=== PATIENT | male | born 2000 | race Caucasian/White ===

== ENCOUNTER 2023-02-14 20:07 | Emergency (ER) | payer OTHER ==
[2023-02-14] MEDS ORDERED: Diphtheria,Pertussis(Acell),Tetanus Vaccine 0.5 ML Syringe IM ONE (20:34)
[2023-02-14] MEDS ORDERED: Lidocaine 1% PF 2 ML SDV INJECT ONE (20:34)
[2023-02-14] MEDS ORDERED: Octyl 2-Cyanoacrylate 1 g/1 mL 1 APPLIC PEN TOP ONE (20:46)
== END 2023-02-14 21:03 | disposition home or self-care (01) ==
LOC: MW.ED 20:07
DX: S01.81XA Laceration without foreign body of other part of head, initial encounter (principal); Z23 Encounter for immunization; W20.8XXA Other cause of strike by thrown, projected or falling object, initial encounter; Y99.0 Civilian activity done for income or pay
CPT/HCPCS: 12011; 90471; 90715; 99283; A9270

== ENCOUNTER 2023-07-10 16:47 | Emergency (ER) | payer SELFPAY ==
[2023-07-10] MEDS ORDERED: Sodium Chloride 0.9% 10 ML Syringe FLUSH PRN (17:07)
[2023-07-10] MEDS ORDERED: Sodium Chloride 0.9% 2.5 ML Syringe FLUSH PRN (17:07)
[2023-07-10] MEDS ORDERED: Sodium Chloride 0.9% 1,000 ML IV STA (17:08)
[2023-07-10 18:26] LABS: HEMATOCRIT 43.4 % (42.0-52.0); HEMOGLOBIN 15.1 g/dL (14.0-18.0); MEAN CORPUSCULAR HEMOGLOBIN 30.4 pg (28.0-32.0); MEAN CORPUSCULAR HGB CONC 34.8 g/dL (32.0-36.0); MEAN CORPUSCULAR VOLUME 87.5 fL (83.0-99.0); MEAN PLATELET VOLUME 11.1 fL (9.4-12.4); PLATELET COUNT,PLT 182 K/uL (150-400); RED BLOOD CELL COUNT 4.96 M/uL (4.52-5.90); WHITE BLOOD CELL COUNT,WBC 4.77 K/uL (3.9-11.3)
[2023-07-10 18:46] LABS: SEG NEUTROPHILS ABSOLUTE MAN 2.9 (1.4-5.7); SEG NEUTROPHILS PERCENT MAN 61 % (48.0-80.0)
[2023-07-10 18:47] LABS: EOSINOPHILS PERCENT MAN 1 % (0.0-7.0); LYMPHOCYTES ABSOLUTE MAN 0.9 (0.6-2.4); LYMPHOCYTES PERCENT MAN 18 % (16.0-40.0); MONOCYTES PERCENT MAN 20 % (0.0-15.0)
[2023-07-10 19:02] LABS: A/G RATIO 1.1 (0.9-1.6); ALBUMIN 3.8 g/dL (3.4-5.0); BILIRUBIN TOTAL 0.4 mg/dL (0.2-1.0); CALCIUM 8.7 mg/dL (8.5-10.1); CREATININE 1.1 mg/dL (0.8-1.3); EST CRCL DRUG DOSING (CG) 88.6 mL/min; MAGNESIUM 1.8 mg/dL (1.8-2.4); POTASSIUM,K 4.3 mmol/L (3.5-5.1); PROTEIN TOTAL,TP 7.4 g/dL (6.4-8.2)
[2023-07-10 19:03] LABS: CORONAVIRUS COVID-19 NAA POSITIVE (NEGATIVE); INFLUENZA A NAA NEGATIVE (NEGATIVE); INFLUENZA B NAA NEGATIVE (NEGATIVE)
== END 2023-07-10 19:33 | disposition home or self-care (01) ==
LOC: MW.ED 16:47
DX: U07.1 COVID-19 (principal); I10 Essential (primary) hypertension; Z88.0 Allergy status to penicillin; Z79.899 Other long term (current) drug therapy
CPT/HCPCS: 0240U; 36415; 80053; 82947; 83735; 84484; 85025; 93005; 96360; 99284; J3490; J7030; 93010; 99283

== ENCOUNTER 2023-08-29 20:47 | Emergency (ER) | payer OTHER ==
[2023-08-29] MEDS ORDERED: LORazepam 1 MG Tab PO ONE (21:08)
[2023-08-29 21:35] LABS: BASOPHILS ABSOLUTE AUTO 0.03 K/uL (0.00-0.20); BASOPHILS PERCENT AUTO 0.4 % (0.0-1.0); EOSINOPHILS ABSOLUTE AUTO 0.17 K/uL (0.00-0.45); EOSINOPHILS PERCENT AUTO 2.4 % (0.0-6.0); HEMATOCRIT 42.7 % (42.0-52.0); HEMOGLOBIN 14.8 g/dL (14.0-18.0); IMMATURE GRAN ABSOLUTE AUTO 0.02 K/uL (0.00-0.05); IMMATURE GRAN PERCENT AUTO 0.3 % (0.0-0.4); LYMPHOCYTES ABSOLUTE AUTO 2.41 K/uL (1.00-4.80); MEAN CORPUSCULAR HGB CONC 34.7 g/dL (32.0-36.0); MEAN CORPUSCULAR VOLUME 86.6 fL (83.0-99.0); MEAN PLATELET VOLUME 11.1 fL (9.4-12.4); MONOCYTES ABSOLUTE AUTO 0.55 K/uL (0.00-0.80); MONOCYTES PERCENT AUTO 7.8 % (0.0-8.0); NEUTROPHILS ABSOLUTE AUTO 3.91 K/uL (1.80-7.70); NEUTROPHILS PERCENT AUTO 55.1 % (41.0-71.0); PLATELET COUNT,PLT 222 K/uL (150-400); RED BLOOD CELL COUNT 4.93 M/uL (4.52-5.90); WHITE BLOOD CELL COUNT,WBC 7.09 K/uL (3.9-11.3)
[2023-08-29 22:05] LABS: ALANINE AMINOTRANSFERASE,ALT 24 IU/L (14-63); ALBUMIN 3.7 g/dL (3.4-5.0); ALKALINE PHOSPHATASE 101 U/L (46-116); ASPARTATE AMNIOTRANSFERASE,AST 19 IU/L (15-37); BILIRUBIN TOTAL 0.4 mg/dL (0.2-1.0); BLOOD UREA NITROGEN,BUN 12 mg/dL (7.0-18.0); CALCIUM 8.9 mg/dL (8.5-10.1); CARBON DIOXIDE,CO2 27.2 mmol/L (21.0-32.0); CHLORIDE,CL 104 mmol/L (98-107); CREATININE 0.9 mg/dL (0.8-1.3); EST CRCL DRUG DOSING (CG) 104.68 mL/min; GLUCOSE RANDOM 98 mg/dL (74-106); POTASSIUM,K 3.7 mmol/L (3.5-5.1); PROTEIN TOTAL,TP 7.3 g/dL (6.4-8.2); SODIUM,NA 140 mmol/L (136-148); TSH ULTRASENSITIVE 2.09 uIU/mL (0.36-3.74)
[2023-08-29 22:13] LABS: ESTIMATED GFR 125 mL/min (>60)
[2023-08-29 22:35] LABS: APPEARANCE,URINE CLEAR; BILIRUBIN,URINE NEGATIVE (NEGATIVE); COLOR,URINE YELLOW; GLUCOSE,URINE NEGATIVE (NEGATIVE); KETONES,URINE NEGATIVE (NEGATIVE); LEUKOCYTE ESTERASE,URINE NEGATIVE (NEGATIVE); NITRITE,URINE NEGATIVE (NEGATIVE); OCCULT BLOOD,URINE TRACE-LYSED (NEGATIVE); PROTEIN,URINE NEGATIVE (NEGATIVE)
[2023-08-29 22:45] LABS: AMPHETAMINES SCREEN, URINE NEGATIVE (CUTOFF=500); BARBITURATE SCREEN,URINE NEGATIVE (CUTOFF=200); BENZODIAZEPINES SCREEN,URINE NEGATIVE (CUTOFF=150); BUPRENORPHINE SCREEN,URINE NEGATIVE (CUTOFF=10); METHADONE SCREEN, URINE NEGATIVE (CUTOFF=200); METHAMPHETAMINES SCREEN, URINE NEGATIVE (CUTOFF=500); OXYCODONE SCREEN,URINE NEGATIVE (CUT0FF=100); PCP SCREEN,URINE NEGATIVE (CUTOFF=25); THC SCREEN,URINE 20 NG/ML NEGATIVE (CUTOFF=50)
[2023-08-29 23:01] LABS: BACTERIA,URINE RARE (NEGATIVE); EPITHELIAL CELLS,URINE RARE (NONE-FEW); RBC,URINE 0-3 (0-2/HPF); WBC,URINE 0-1 (0-5/HPF)
== END 2023-08-30 00:32 | disposition home or self-care (01) ==
LOC: MW.ED 20:47
DX: R07.9 Chest pain, unspecified (principal)
CPT/HCPCS: 36415; 71045; 80053; 80305; 81001; 84443; 84484; 85025; 93005; 99285; A9270; 93010; 99283

== ENCOUNTER 2023-12-05 06:22 | Emergency (ER) | payer SELFPAY ==
[2023-12-05] MEDS: Ibuprofen 600 MG Tab PO ONE (06:58)
[2023-12-05] MEDS: Acetaminophen/oxyCODONE 325-5 MG Tab PO ONE (06:58)
== END 2023-12-05 07:39 | disposition home or self-care (01) ==
LOC: MW.ED 06:22
DX: S62.001A Unspecified fracture of navicular [scaphoid] bone of right wrist, initial encounter for closed fracture (principal); M87.9 Osteonecrosis, unspecified; I10 Essential (primary) hypertension; F17.210 Nicotine dependence, cigarettes, uncomplicated; Z79.899 Other long term (current) drug therapy; Z88.0 Allergy status to penicillin; W18.40XA Slipping, tripping and stumbling without falling, unspecified, initial encounter
CPT/HCPCS: 73110; 99283; A9270

== ENCOUNTER 2024-03-28 09:34 | Emergency (ER) | payer BC ==
[2024-03-28] MEDS: Sodium Chloride 0.9% 1,000 ML IV ONE (10:21)
[2024-03-28 10:29] LABS: BASOPHILS ABSOLUTE AUTO 0.04 K/uL (0.00-0.20); BASOPHILS PERCENT AUTO 0.6 % (0.0-1.0); EOSINOPHILS ABSOLUTE AUTO 0.17 K/uL (0.00-0.45); EOSINOPHILS PERCENT AUTO 2.7 % (0.0-6.0); HEMOGLOBIN 15.1 g/dL (14.0-18.0); IMMATURE GRAN ABSOLUTE AUTO 0.04 K/uL (0.00-0.05); IMMATURE GRAN PERCENT AUTO 0.6 % (0.0-0.4); LYMPHOCYTES ABSOLUTE AUTO 1.76 K/uL (1.00-4.80); LYMPHOCYTES PERCENT AUTO 28.1 % (24.0-44.0); MEAN CORPUSCULAR HEMOGLOBIN 30.5 pg (28.0-32.0); MEAN CORPUSCULAR HGB CONC 34.3 g/dL (32.0-36.0); MEAN CORPUSCULAR VOLUME 88.9 fL (83.0-99.0); MEAN PLATELET VOLUME 11.4 fL (9.4-12.4); MONOCYTES ABSOLUTE AUTO 0.56 K/uL (0.00-0.80); MONOCYTES PERCENT AUTO 8.9 % (0.0-8.0); NEUTROPHILS ABSOLUTE AUTO 3.69 K/uL (1.80-7.70); NEUTROPHILS PERCENT AUTO 59.1 % (41.0-71.0); PLATELET COUNT,PLT 269 K/uL (150-400); RED BLOOD CELL COUNT 4.95 M/uL (4.52-5.90); WHITE BLOOD CELL COUNT,WBC 6.26 K/uL (3.9-11.3)
[2024-03-28 10:38] LABS: A/G RATIO 1.2 (0.9-1.6); ALBUMIN 4.1 g/dL (3.4-5.0); BILIRUBIN TOTAL 0.5 mg/dL (0.2-1.0); CALCIUM 8.8 mg/dL (8.5-10.1); CARBON DIOXIDE,CO2 27.4 mmol/L (21.0-32.0); CREATININE 0.9 mg/dL (0.8-1.3); EST CRCL DRUG DOSING (CG) 108.29 mL/min; POTASSIUM,K 4.1 mmol/L (3.5-5.1); PROTEIN TOTAL,TP 7.5 g/dL (6.4-8.2)
[2024-03-28 11:08] LABS: CORONAVIRUS COVID-19 NAA NEGATIVE (NEGATIVE); INFLUENZA A NAA NEGATIVE (NEGATIVE); INFLUENZA B NAA NEGATIVE (NEGATIVE)
[2024-03-28 11:15] LABS: TSH ULTRASENSITIVE 0.65 uIU/mL (0.36-3.74)
== END 2024-03-28 12:26 | disposition home or self-care (01) ==
LOC: MW.ED 09:34
DX: R53.83 Other fatigue (principal); I10 Essential (primary) hypertension; F17.210 Nicotine dependence, cigarettes, uncomplicated; Z75.8 Other problems related to medical facilities and other health care; Z88.0 Allergy status to penicillin
CPT/HCPCS: 0240U; 36415; 71045; 80053; 82375; 83735; 84443; 85025; 86308; 93005; 96360; 96361; 99285; J7030

== ENCOUNTER 2024-04-25 21:55 | Emergency (ER) | payer SELFPAY ==
[2024-04-25] MEDS ORDERED: Sodium Chloride 0.9% 2.5 ML Syringe FLUSH PRN (22:03)
[2024-04-25] MEDS ORDERED: Sodium Chloride 0.9% 10 ML Syringe FLUSH PRN (22:03)
[2024-04-25 22:22] LABS: BASOPHILS ABSOLUTE AUTO 0.06 K/uL (0.00-0.20); BASOPHILS PERCENT AUTO 0.7 % (0.0-1.0); EOSINOPHILS ABSOLUTE AUTO 0.17 K/uL (0.00-0.45); EOSINOPHILS PERCENT AUTO 2.1 % (0.0-6.0); HEMATOCRIT 45.5 % (42.0-52.0); IMMATURE GRAN ABSOLUTE AUTO 0.02 K/uL (0.00-0.05); IMMATURE GRAN PERCENT AUTO 0.2 % (0.0-0.4); LYMPHOCYTES ABSOLUTE AUTO 2.79 K/uL (1.00-4.80); LYMPHOCYTES PERCENT AUTO 34.4 % (24.0-44.0); MEAN CORPUSCULAR HEMOGLOBIN 30.7 pg (28.0-32.0); MEAN CORPUSCULAR HGB CONC 35.2 g/dL (32.0-36.0); MEAN CORPUSCULAR VOLUME 87.2 fL (83.0-99.0); MEAN PLATELET VOLUME 11.2 fL (9.4-12.4); MONOCYTES ABSOLUTE AUTO 0.49 K/uL (0.00-0.80); NEUTROPHILS ABSOLUTE AUTO 4.59 K/uL (1.80-7.70); NEUTROPHILS PERCENT AUTO 56.6 % (41.0-71.0); PLATELET COUNT,PLT 235 K/uL (150-400); RED BLOOD CELL COUNT 5.22 M/uL (4.52-5.90); WHITE BLOOD CELL COUNT,WBC 8.12 K/uL (3.9-11.3)
[2024-04-25] MEDS: Sodium Chloride 0.9% 1,000 ML IV STA (22:36)
[2024-04-25] MEDS: Ondansetron 4 MG/2 ML SDV IVPUSH ONE (22:37)
[2024-04-25 22:49] LABS: A/G RATIO 1.3 (0.9-1.6); ALBUMIN 4.2 g/dL (3.4-5.0); CREATININE 0.9 mg/dL (0.8-1.3); EST CRCL DRUG DOSING (CG) 107.8 mL/min; POTASSIUM,K 3.4 mmol/L (3.5-5.1); PROTEIN TOTAL,TP 7.4 g/dL (6.4-8.2)
[2024-04-25 22:50] LABS: APPEARANCE,URINE CLEAR; BILIRUBIN,URINE NEGATIVE (NEGATIVE); COLOR,URINE YELLOW; GLUCOSE,URINE NEGATIVE (NEGATIVE); KETONES,URINE NEGATIVE (NEGATIVE); LEUKOCYTE ESTERASE,URINE NEGATIVE (NEGATIVE); NITRITE,URINE NEGATIVE (NEGATIVE); OCCULT BLOOD,URINE NEGATIVE (NEGATIVE); PROTEIN,URINE NEGATIVE (NEGATIVE)
[2024-04-25 22:52] LABS: LACTIC ACID 1.9 mmol/L (0.4-2.0)
== END 2024-04-25 23:31 | disposition home or self-care (01) ==
LOC: MW.ED 21:55
DX: R11.2 Nausea with vomiting, unspecified (principal); R19.7 Diarrhea, unspecified; Z75.8 Other problems related to medical facilities and other health care; I10 Essential (primary) hypertension
CPT/HCPCS: 36415; 80053; 81003; 83605; 83690; 85025; 96361; 96374; 99284; J2405; J7030

== ENCOUNTER 2024-07-07 10:52 | Emergency (ER) | payer SELFPAY ==
[2024-07-07] MEDS: Ondansetron 4 MG/2 ML SDV IVPUSH ONE (11:09)
[2024-07-07] MEDS: Sodium Chloride 0.9% 1,000 ML IV ONE (11:10)
[2024-07-07 11:13] LABS: BASOPHILS ABSOLUTE AUTO 0.08 K/uL (0.00-0.20); BASOPHILS PERCENT AUTO 0.7 % (0.0-1.0); EOSINOPHILS ABSOLUTE AUTO 0.07 K/uL (0.00-0.45); EOSINOPHILS PERCENT AUTO 0.6 % (0.0-6.0); HEMOGLOBIN 14.2 g/dL (14.0-18.0); IMMATURE GRAN PERCENT AUTO 0.8 % (0.0-0.4); LYMPHOCYTES ABSOLUTE AUTO 2.41 K/uL (1.00-4.80); MEAN CORPUSCULAR HEMOGLOBIN 30.1 pg (28.0-32.0); MEAN CORPUSCULAR HGB CONC 33.8 g/dL (32.0-36.0); MEAN CORPUSCULAR VOLUME 89.2 fL (83.0-99.0); MONOCYTES ABSOLUTE AUTO 0.65 K/uL (0.00-0.80); MONOCYTES PERCENT AUTO 5.4 % (0.0-8.0); NEUTROPHILS ABSOLUTE AUTO 8.74 K/uL (1.80-7.70); NEUTROPHILS PERCENT AUTO 72.5 % (41.0-71.0); PLATELET COUNT,PLT 247 K/uL (150-400); RED BLOOD CELL COUNT 4.71 M/uL (4.52-5.90); WHITE BLOOD CELL COUNT,WBC 12.05 K/uL (3.9-11.3)
[2024-07-07 11:38] LABS: A/G RATIO 1.2 (0.9-1.6); ALANINE AMINOTRANSFERASE,ALT 45 IU/L (14-63); ALKALINE PHOSPHATASE 98 U/L (46-116); ASPARTATE AMNIOTRANSFERASE,AST 36 IU/L (15-37); BILIRUBIN TOTAL 0.4 mg/dL (0.2-1.0); BLOOD UREA NITROGEN,BUN 10 mg/dL (7.0-18.0); CALCIUM 8.7 mg/dL (8.5-10.1); CARBON DIOXIDE,CO2 27.8 mmol/L (21.0-32.0); CHLORIDE,CL 103 mmol/L (98-107); CREATININE 0.8 mg/dL (0.8-1.3); EST CRCL DRUG DOSING (CG) 121.89 mL/min; ESTIMATED GFR 128 mL/min (>60); ETHANOL BLOOD MEDICAL 273 mg/dL; GLUCOSE RANDOM 158 mg/dL (74-106); POTASSIUM,K 3.3 mmol/L (3.5-5.1); PROTEIN TOTAL,TP 7.3 g/dL (6.4-8.2); SODIUM,NA 142 mmol/L (136-148)
== END 2024-07-07 14:22 | disposition home or self-care (01) ==
LOC: MW.ED 10:52
DX: Z02.89 Encounter for other administrative examinations (principal); S09.90XA Unspecified injury of head, initial encounter; F14.10 Cocaine abuse, uncomplicated; I10 Essential (primary) hypertension; Z88.0 Allergy status to penicillin; Z75.8 Other problems related to medical facilities and other health care; Y04.8XXA Assault by other bodily force, initial encounter
CPT/HCPCS: 36415; 70450; 71045; 72125; 80053; 80307; 84484; 85025; 93005; 96361; 96374; 99285; J2405; J7030; 93010; 99284

== ENCOUNTER 2024-10-03 00:28 | Emergency (ER) | payer SELFPAY ==
[2024-10-03] MEDS: predniSONE 20 MG Tab PO ONE (00:42)
[2024-10-03] MEDS: Albuterol/Ipratropium 3.0-0.5 MG/3 ML Neb Soln NEB ONE ×3 (00:43→00:44)
[2024-10-03] MEDS: Albuterol 8 GM Inhaler INH ONE (02:15)
[2024-10-03] MEDS ORDERED: Albuterol 8 GM Inhaler INH ONE (02:30)
== END 2024-10-03 02:34 | disposition home or self-care (01) ==
LOC: MW.ED 00:28
DX: J45.901 Unspecified asthma with (acute) exacerbation (principal); I10 Essential (primary) hypertension; Z88.0 Allergy status to penicillin; Z79.899 Other long term (current) drug therapy; Z79.51 Long term (current) use of inhaled steroids
CPT/HCPCS: 99284; A9270; 99283; J7620-GY

== ENCOUNTER 2024-10-20 04:45 | Emergency (ER) | payer SELFPAY ==
[2024-10-20] MEDS ORDERED: Sodium Chloride 0.9% 10 ML Syringe FLUSH PRN (05:12)
[2024-10-20] MEDS ORDERED: Sodium Chloride 0.9% 20 ML SDV IV PRN (05:12)
[2024-10-20] MEDS ORDERED: Sodium Chloride 0.9% 2.5 ML Syringe FLUSH PRN (05:12)
[2024-10-20] MEDS ORDERED: Naloxone 0.4 MG/ML SDV IVPUSH PRN (05:17)
[2024-10-20 05:19] LABS: BASOPHILS ABSOLUTE AUTO 0.06 K/uL (0.00-0.20); BASOPHILS PERCENT AUTO 0.8 % (0.0-1.0); EOSINOPHILS ABSOLUTE AUTO 0.48 K/uL (0.00-0.45); EOSINOPHILS PERCENT AUTO 6.3 % (0.0-6.0); HEMATOCRIT 43.1 % (42.0-52.0); HEMOGLOBIN 15.1 g/dL (14.0-18.0); IMMATURE GRAN ABSOLUTE AUTO 0.02 K/uL (0.00-0.05); IMMATURE GRAN PERCENT AUTO 0.3 % (0.0-0.4); LYMPHOCYTES ABSOLUTE AUTO 2.85 K/uL (1.00-4.80); LYMPHOCYTES PERCENT AUTO 37.2 % (24.0-44.0); MEAN CORPUSCULAR HEMOGLOBIN 30.6 pg (28.0-32.0); MEAN CORPUSCULAR VOLUME 87.4 fL (83.0-99.0); MEAN PLATELET VOLUME 11.5 fL (9.4-12.4); MONOCYTES ABSOLUTE AUTO 0.44 K/uL (0.00-0.80); MONOCYTES PERCENT AUTO 5.7 % (0.0-8.0); NEUTROPHILS ABSOLUTE AUTO 3.82 K/uL (1.80-7.70); NEUTROPHILS PERCENT AUTO 49.7 % (41.0-71.0); PLATELET COUNT,PLT 183 K/uL (150-400); RED BLOOD CELL COUNT 4.93 M/uL (4.52-5.90); WHITE BLOOD CELL COUNT,WBC 7.67 K/uL (3.9-11.3)
[2024-10-20] MEDS: Sodium Chloride 0.9% 1,000 ML IV ONE (05:27)
[2024-10-20] MEDS: Ondansetron 4 MG/2 ML SDV IVPUSH ONE (05:27)
[2024-10-20] MEDS: Morphine 2 MG/ML SYRINGE IVPUSH ONE (05:27)
[2024-10-20 05:29] LABS: A/G RATIO 1.2 (0.9-1.6); ALANINE AMINOTRANSFERASE,ALT 22 IU/L (14-63); ALKALINE PHOSPHATASE 97 U/L (46-116); ASPARTATE AMNIOTRANSFERASE,AST 22 IU/L (15-37); BILIRUBIN TOTAL 0.3 mg/dL (0.2-1.0); BLOOD UREA NITROGEN,BUN 13 mg/dL (7.0-18.0); CARBON DIOXIDE,CO2 26.2 mmol/L (21.0-32.0); CHLORIDE,CL 102 mmol/L (98-107); CREATININE 0.9 mg/dL (0.8-1.3); EST CRCL DRUG DOSING (CG) 112.35 mL/min; GLUCOSE RANDOM 105 mg/dL (74-106); POTASSIUM,K 3.9 mmol/L (3.5-5.1); PROTEIN TOTAL,TP 7.4 g/dL (6.4-8.2); SODIUM,NA 141 mmol/L (136-148)
[2024-10-20] MEDS: Ketorolac 30 MG/ML SDV IVPUSH ONE (05:32)
[2024-10-20] MEDS: Iopamidol 755 MG/ML 500 ML Multipack Bottle IVPUSH ONE (05:47)
[2024-10-20 05:59] LABS: C-REACTIVE PROTEIN < 0.05 mg/dL (<0.3); ESTIMATED GFR 124 mL/min (>60)
== END 2024-10-20 07:56 | disposition home or self-care (01) ==
LOC: MW.ED 04:45
DX: G44.86 Cervicogenic headache (principal); J45.909 Unspecified asthma, uncomplicated; I10 Essential (primary) hypertension; Z88.0 Allergy status to penicillin; Z79.51 Long term (current) use of inhaled steroids; Z75.8 Other problems related to medical facilities and other health care
CPT/HCPCS: 36415; 70450; 70496; 70498; 80053; 85025; 86140; 96361; 96374; 96375; 99284; J2270; J2405; J7030; Q9967

== ENCOUNTER 2025-07-17 11:10 | Emergency (ER) | payer SELFPAY | END 2025-07-17 13:04 | disposition home or self-care (01) | LOC: MW.ED 11:10 | DX: M25.531 Pain in right wrist (principal); I10 Essential (primary) hypertension; J45.909 Unspecified asthma, uncomplicated; Z75.3 Unavailability and inaccessibility of health-care facilities; Z88.1 Allergy status to other antibiotic agents; Z88.8 Allergy status to other drugs, medicaments and biological substances; X58.XXXA Exposure to other specified factors, initial encounter | CPT/HCPCS: 73110-26-RT; 73110-RT; 99283 ==

== ENCOUNTER 2025-07-19 17:49 | Emergency (ER) | payer SELFPAY ==
[2025-07-19] MEDS ORDERED: Sodium Chloride 0.9% 10 ML Syringe FLUSH PRN (17:57)
[2025-07-19] MEDS ORDERED: Sodium Chloride 0.9% 2.5 ML Syringe FLUSH PRN (17:57)
[2025-07-19 18:17] LABS: BASOPHILS ABSOLUTE AUTO 0.03 K/uL (0.00-0.20); BASOPHILS PERCENT AUTO 0.2 % (0.0-1.0); EOSINOPHILS ABSOLUTE AUTO 0.00 K/uL (0.00-0.45); EOSINOPHILS PERCENT AUTO 0.0 % (0.0-6.0); IMMATURE GRAN ABSOLUTE AUTO 0.06 K/uL (0.00-0.05); IMMATURE GRAN PERCENT AUTO 0.5 % (0.0-0.4); LYMPHOCYTES ABSOLUTE AUTO 3.19 K/uL (1.00-4.80); LYMPHOCYTES PERCENT AUTO 24.0 % (24.0-44.0); MEAN PLATELET VOLUME 10.6 fL (9.4-12.4); MONOCYTES ABSOLUTE AUTO 1.17 K/uL (0.00-0.80); MONOCYTES PERCENT AUTO 8.8 % (0.0-8.0); NEUTROPHILS ABSOLUTE AUTO 8.85 K/uL (1.80-7.70); NEUTROPHILS PERCENT AUTO 66.5 % (41.0-71.0); NRBC ABSOLUTE 0.00 K/uL (0.00-0.02); NRBC PERCENT 0.0 /100WBC (0.0-0.2); PLATELET COUNT,PLT 241 K/uL (150-400); RED BLOOD CELL COUNT 4.77 M/uL (4.52-5.90); WHITE BLOOD CELL COUNT,WBC 13.30 K/uL (3.9-11.3)
[2025-07-19] MEDS ORDERED: Midazolam 1 MG/ML 2 ML SDV IVPUSH PRN (18:20)
[2025-07-19] MEDS: Ketorolac 30 MG/ML SDV IVPUSH ONE (18:32)
[2025-07-19] MEDS: Iopamidol 755 Mg/ML 100 ML Bottle IVPUSH ONE (18:32)
[2025-07-19] MEDS: Dexamethasone Sod Phos Preservative Free 10 MG/ML Vial IVPUSH ONE (18:32)
[2025-07-19 18:38] LABS: APPEARANCE,URINE CLEAR; GLUCOSE,URINE NEGATIVE (NEGATIVE); OCCULT BLOOD,URINE NEGATIVE (NEGATIVE)
[2025-07-19 18:47] LABS: AMPHETAMINES SCREEN, URINE NEGATIVE (CUTOFF=500); BUPRENORPHINE SCREEN,URINE NEGATIVE (CUTOFF=10); METHADONE SCREEN, URINE NEGATIVE (CUTOFF=200); METHAMPHETAMINES SCREEN, URINE PRESUMPTIVE POSITIVE (CUTOFF=500); OXYCODONE SCREEN,URINE NEGATIVE (CUT0FF=100); PCP SCREEN,URINE NEGATIVE (CUTOFF=25); THC SCREEN,URINE 20 NG/ML PRESUMPTIVE POSITIVE (CUTOFF=50)
[2025-07-19 18:51] LABS: A/G RATIO 1.2 (0.9-1.6); ALANINE AMINOTRANSFERASE,ALT 23.0 IU/L (14-63); ASPARTATE AMNIOTRANSFERASE,AST 19.0 IU/L (15-37); BILIRUBIN TOTAL 0.5 mg/dL (0.2-1.0); BLOOD UREA NITROGEN,BUN 18.0 mg/dL (7.0-18.0); CARBON DIOXIDE,CO2 27.8 mmol/L (21.0-32.0); CHLORIDE,CL 103.0 mmol/L (98-107); CREATININE 0.9 mg/dL (0.8-1.3); EST CRCL DRUG DOSING (CG) 104.83 mL/min; ESTIMATED GFR 123.0 mL/min (>60); GLUCOSE RANDOM 78.0 mg/dL (74-106); POTASSIUM,K 3.5 mmol/L (3.5-5.1); PRO B-TYPE NATRIUR PEPT,BNPPRO 8.0 pg/mL (0-125); PROTEIN TOTAL,TP 7.1 g/dL (6.4-8.2); SODIUM,NA 140.0 mmol/L (136-148)
== END 2025-07-19 19:14 | disposition home or self-care (01) ==
LOC: MW.ED 17:49
DX: S20.221A Contusion of right back wall of thorax, initial encounter (principal); F15.129 Other stimulant abuse with intoxication, unspecified; F14.90 Cocaine use, unspecified, uncomplicated; F12.90 Cannabis use, unspecified, uncomplicated; R45.1 Restlessness and agitation; I10 Essential (primary) hypertension; Z88.0 Allergy status to penicillin; Z88.8 Allergy status to other drugs, medicaments and biological substances; Z79.899 Other long term (current) drug therapy; W21.02XA Struck by soccer ball, initial encounter; Y93.89 Activity, other specified
CPT/HCPCS: 36415; 71260; 80053; 80305; 81003; 83880; 84484; 85025; 93005; 96374; 96375; 99284; J1100; J1885; Q9967; 93010